=== PATIENT | male | born 1955 | race Caucasian/White ===

== ENCOUNTER → 2019-02-16 | Outpatient (CLI) | payer OTHER ==
[~2019-02-16] MED LIST: AMLO1CAP PO; EZET1TAB30 PO; GLUC1TAB69 PO; IBUP200T58 PO; MULT-475 PO; OMEG1CAP27 PO; PREG75CA PO
[2019-02-16 09:23] LABS: ALBUMIN 3.8 g/dL (3.4-5.0); CALCIUM 8.8 mg/dL (8.5-10.1); CREATININE 1.5 mg/dL (0.7-1.3)
[2019-02-16 09:35] LABS: BASO # 0.1 x10^3/uL (0.0-0.2); BASO % 1 % (0-3); EOS # 0.7 x10^3/uL (0.0-0.7); EOS % 12 % (0-3); HEMATOCRIT 42.1 % (39.0-53.0); HEMOGLOBIN 14.7 g/dL (13.0-17.5); LYMPH # 0.8 x10^3/uL (1.0-4.8); LYMPH % 13 % (24-48); MEAN CORPUSCULAR HEMOGLOBIN 32 pg (25-35); MEAN CORPUSCULAR HGB CONC 35 g/dL (31-37); MEAN CORPUSCULAR VOLUME 91 fL (79-100); MONO # 0.5 x10^3/uL (0.0-1.1); MONO % 8 % (0-9); NEUT % 66 % (31-73); PLATELET COUNT 216 x10^3/uL (140-400); RED BLOOD COUNT 4.64 x10^6/uL (4.30-5.70)
[2019-02-16 09:38] LABS: PROTHROMBIN TIME PATIENT 12.7 SEC (11.7-14.0)
--- NOTE | 2019-02-16 12:42 | EKG ---
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
--- NOTE | 2019-02-16 14:06 | RAD ---
AP and Lateral Views of the Chest 02/16/2019 9:02 AM Indication: Preoperative Comparison: None Findings: Probable emphysema is noted with relative apical lucency and mild areas of interstitial coarsening. No hyperinflation is seen. Heart size is normal. No focal infiltrate is identified. Bony thorax is grossly intact. IMPRESSION: Probable emphysema. Otherwise no acute cardiopulmonary process. Electronically signed by: Dangelo Cardenas MD (02/16/2019 2:03 PM) [id number]
== END | disposition home or self-care (01) ==
LOC: SURGPAT 12:50
PROVIDERS: ATTEND Orthopaedic Surgery Sports Medicine
DX: Z01.818 Encounter for other preprocedural examination (principal); M17.12 Unilateral primary osteoarthritis, left knee; I10 Essential (primary) hypertension
CPT/HCPCS: 36415; 71046; 80048; 82040; 82306; 85025; 85610; 85651; 85730; 87641; 93005